=== PATIENT | male | born 1945 | race Caucasian/White ===

== ENCOUNTER → 2017-08-14 08:23 | Outpatient (CLI) | payer MEDICARE, OTHER ==
[~2017-08-14] VITALS: Ht 182.9 cm; Wt 100.0 kg
--- NOTE | ~2017-08-14 | HEMODYNAMI ---
PATIENT:JOHN DAUGHERTY MEDICAL RECORD: [id number] : 43 LOCATION:[facility] ADMISSION DATE: 08/14/17 Generatedon:08/14/201710:57 Patient name: JOHN DAUGHERTY Patient #: [id number] SSN: [id number] : 1945 Date of study: 08/14/2017 Page: Of Hemodynamic Procedure Report Patient Data Patient Demographics Procedure consent was obtained First Name: JOHN Gender: Male Last Name: WILLOW : 1945 Middle Initial: D Age: 72 year(s) Patient #: [id number] Race: SSN: [id number] Additional ID: [id number] Contact details Address: [address] State: [place] City: [place] Zip code: [address] Admission Admission Data Admission Date: 08/14/2017 Admission Time: 8:23 Arrival Date: 08/14/2017 Arrival Time: 10:30 Admit Source: Other Insurance Payor: Medicare Height (in.): 72 BSA: 2.25 (m2) Height (cm.): 182.88 BMI: 30.79 (kg/m2) Weight (lbs.): 227 Weight (kg.): 102.97 Lab Results Lab Result Date: 08/14/2017 Lab Result Time: 0:00 Biochemistry Name Units Result Min Max BUN mg/dl 27 --(----)-* 7 18 Creatinine mg/dl 1.7 --(----)-* 0.6 1.3 CBC Name Units Result Min Max Hemoglobin g/dl 15.7 --(--*-)-- 13.5 17.5 Procedure Procedure Types Cath Procedure Diagnostic Procedure [facility] w/Coronaries PCI Procedure Coronary Atherectomy Atherectomy w/PTCA Coronary Initial Procedure Description Procedure Date Procedure Date: 08/14/2017 Procedure Start Time: 10:27 Procedure End Time: 10:53 Procedure Staff Name Function Jad Velazquez MD Performing Physician Maria D Graff RT Monitor Haleigh Rodriguez RN Nurse April Sifuentes RT Scrub Procedure Data Cath Procedure Fluoroscopy Diagnostic fluoroscopy Total fluoroscopy Time: 5.1 time: 5.1 min min Diagnostic fluoroscopy Total fluoroscopy dose: 622 dose: 622 mGy mGy Contrast Material Contrast Material Type Amount (ml) Isovue 300 63 Entry Location Entry Primary Successful Side Size Upsize Upsize Entry Closure Succes sful Closure Location (Fr) 1 (Fr) 2 (Fr) Remarks Device Remarks Femoral Right 5 Fr 6 Fr Exoseal artery Short Estimated blood loss: 5 ml Diagnostic catheters Device Type Used For End Catheter Placement MULTIPACK Pigtail 5 Fr LV Angiography catheter MULTIPACK JL 4.0 5Fr Left Coronary catheter Angiography MULTIPACK 3DRC 5Fr Right Coronary catheter Angiography Procedure Complications No complications Procedure Medications Medication Administration Route Dosage Oxygen NC 2 l/min Lidocaine 2% added to field 20 Heparin Flush Bag added to field 2 bags (1000units/500ml NS) 0.9% NaCl I.V. 100 ml/hr Versed I.V. 1 mg Fentanyl I.V. 50 mcg Versed I.V. 1 mg Fentanyl I.V. 50 mcg Versed I.V. 1 mg Fentanyl I.V. 50 mcg Heparin Bolus I.V. 4000 units Versed I.V. 1 mg Fentanyl I.V. 50 mcg Hemodynamics Rest BSA: 2.25 (m2) HGB: 15.7 (g/dl) O2 Consumption: Estimated: 256.57 (ml/min) O2 Co nsumption indexed: Estimated:114.03 (ml/min/m) Heart Rate: 67 (bpm) Pressure Samples Time Site Value (mmHg) Purpose Heart Use Rate(bpm) 10:29 LV 84/13,23 Snapshot 68 Snapshots Pre Cath Intra NCS Post Cath Vital Signs Time Heart Resp SPO2 etCO2 NIBP (mmHg) Rhythm Pain Sedation Rate (ipm) (%) (mmHg) Status Level (bpm) 10:13:00 67 15 100 30.7 143/66(109) NSR 0 (11) 10(A) , No pain 10:17:22 65 17 94 31.4 132/57(98) NSR 0 (11) 10(A) , No pain 10:21:39 70 12 95 10.4 107/60(86) NSR 0 (11) 10(A) , No pain 10:25:46 67 16 96 8.9 115/63(83) NSR 0 (11) 9(A) , No pain 10:29:58 66 18 97 0 109/56(77) NSR 0 (11) 9(A) , No pain 10:34:10 72 15 95 23.2 108/57(76) NSR 0 (11) 9(A) , No pain 10:38:20 67 23 96 30.7 113/61(86) NSR 0 (11) 9(A) , No pain 10:42:36 73 15 98 19.4 97/56(83) NSR 0 (11) 9(A) , No pain 10:47:23 68 14 98 8.9 121/62(82) NSR 0 (11) 9(A) , No pain 10:51:35 69 16 99 29.9 116/63(83) NSR 0 (11) 10(A) , No pain Medications Time Medication Route Dose Verified Delivered Reason Notes Effectiveness by by 10:16:14 Oxygen NC 2 Jad Buffie used for l/min Marcus Rodriguez RN procedure 10:16:23 Lidocaine 2% added 20ml Jad Jad for local to vial Marcus Velazquez MD anesthetic field 10:16:31 Heparin Flush added 2 Jad Jad used for Bag to bags Marcus Velazquez MD procedure (1000units/500ml field NS) 10:16:38 0.9% NaCl I.V. 100 Jad Buffie Per physician ml/hr Marcus Rodriguez RN 10:20:00 Versed I.V. 1 mg Jad Buffie for sedation Marcus Rodriguez RN 10:20:07 Fentanyl I.V. 50 Jad Buffie for sedation mcg Marcus Rodriguez RN 10:26:13 Versed I.V. 1 mg Jad Buffie for sedation Marcus Rodriguez RN 10:26:17 Fentanyl I.V. 50 Jad Buffie for sedation mcg Marcus Rodriguez RN 10:34:53 Versed I.V. 1 mg Jad Buffie for sedation Marcus Rodriguez RN 10:34:57 Fentanyl I.V. 50 Jad Buffie for sedation mcg Marcus Rodriguez RN 10:39:17 Heparin Bolus I.V. 4000 Jad Buffie for verifi ed units Marcus Rodriguez RN anticoagulation with dr velazquez 10:45:08 Versed I.V. 1 mg Jad Ricardo for sedation Marcus Rodriguez RN 10:45:11 Fentanyl I.V. 50 Jad Ricardo for sedation mcg Marcus Rodriguez RN Procedure Log Time Note 10:00:00 Informed consent obtained and on chart 10:00:04 Diagnostic Cath Status : Elective 10:00:40 Sheldon Painting RT(R) sent for patient. Start room use. 10:00:41 Time tracking: Regular hours (M-F 7:00 - 5:00) 10:00:49 Plan of Care:Hemodynamics will remain stable., Cardiac rhythm will remain stable., Comfort level will be maintained., Respiratory function will remain adequate., Patient/ family verbilizes understanding of procedure., Procedure tolerated without complication., Recovers from procedure without complications.. 10:02:19 Admit Source: Other 10:03:01 Arrival Date: 08/14/2017 10:30:00 AM 10:03:09 Insurance Payor : Medicare 10:03:54 Patient Height : 72 inches 10:04:22 Patient Weight : 227 lbs 10:06:06 Lab Result : Hemoglobin 15.7 g/dl 10:06:06 Lab Result : Creatinine 1.7 mg/dl 10:06:06 Lab Result : BUN 27 mg/dl 10:06:17 Patient received from Pre/Post Procedure Room to CCL 2 Alert and oriented. Tansferred to table in Supine position. 10:06:18 Warm blankets applied, and marlene hugger turned on for patient comfort. 10:06:18 Correct patient and procedure confirmed by team. 10:06:19 ECG and BP/O2 sat monitors applied to patient. 10:11:50 Vital chart was started 10:11:51 Full Disclosure recording started 10:13:35 Baseline sample Acquired. 10:13:39 Rhythm: sinus rhythm 10:13:48 H&P Date Dictated: 08/14/2017 Within 30 days and on chart., H&P Addendum completed by physician on day of procedure. (MUST COMPLETE FOR ALL OUTPATIENTS). 10:13:49 Pre-procedure instructions explained to patient. 10:13:49 Pre-op teaching completed and patient verbalized understanding. 10:13:51 Family in waiting room. 10:13:52 Patient NPO since Midnight. 10:13:54 Is the patient allergic to Iodine/contrast media? No. 10:13:55 Was the patient premedicated? No 10:14:07 Is patient on blood thinner?Yes 10:14:13 ACC The patient was administered the following blood thiners within the last 24 hours: ACCPlavix 10:14:15 Patient diabetic? No. 10:14:17 Previous problem with sedation/anesthesia? No ? 10:14:19 Snore? No 10:14:20 Sleep apnea? No 10:14:21 Deviated septum? No 10:14:22 Opens mouth fully? Yes 10:14:23 Sticks out tongue? Yes 10:14:24 Airway obstruction? No ? 10:14:27 Dentures? No ? 10:14:30 Pre procedure: right dorsailis pedis pulse 2+ Normal; easily identifiable; not easily obliterated 10:14:33 Pre procedure: left dorsailis pedis pulse 2+ Normal; easily identifiable; not easily obliterated 10:14:36 Patient pain scale 0/10 ?. 10:14:43 IV patent on arrival in left forearm with 0.9% NaCl at [facility]. 10:14:46 Lab results completed and on chart. 10:14:51 Right groin area was prepped with chlora-prep and draped in sterile fashion 10:14:54 Alarms reviewed by R. N. 10:14:54 Sharps counted by scrub and verified by R.N. 10:16:14 Oxygen 2 l/min NC was administered by Haleigh Rodriguez RN; used for procedure; 10:16:23 Lidocaine 2% 20ml vial added to field was administered by Jad Velazquez MD; for local anesthetic; 10:16:31 Heparin Flush Bag (1000units/500ml NS) 2 bags added to field was administered by Jad Velazquez MD; used for procedure; 10:16:38 0.9% NaCl 100 ml/hr I.V. was administered by Haleigh Rodriguez RN; Per physician; 10:19:42 Physician arrived 10:19:42 --------ALL STOP TIME OUT------ 10:19:43 Final Timeout: patient, procedure, and site verified with staff and physician. All members of the team are in agreement. 10:19:47 Right groin site verified by team. 10:19:49 Physical assessment completed. ASA score P 2 - A patient with mild systemic disease as per Jad Velazquez MD. 10:19:52 Sedation plan: IV Moderate Sedation Medication:Versed, Fentanyl 10:20:00 Versed 1 mg I.V. was administered by Haleigh Rodriguez RN; for sedation; 10:20:02 Use device set Femoral Dx 10:20:03 ACIST Syringe (91634) opened to sterile field. 10:20:03 Bag Decanter (2002S) opened to sterile field. 10:20:04 Medline Cath Pack ([id number]) opened to sterile field. 10:20:04 DIAGNOSTIC WIRE .035 260cm J wire (206832) opened to sterile field. 10:20:05 ACIST Hand Control (23674) opened to sterile field. 10:20:05 ACIST Manifold (22855) opened to sterile field. 10:20:06 DIAGNOSTIC Multipack 5Fr catheter set (DT4746) opened to sterile field. 10:20:07 Fentanyl 50 mcg I.V. was administered by Haleigh Rodriguez RN; for sedation; 10:20:07 Tegaderm 4 x 4 (1626W) opened to sterile field. 10:20:11 SHEATH Prelude 5Fr 0.035 (WCL-8R-27-035) opened to sterile field. 10:22:59 Zero performed for pressure channel P1 10:26:13 Versed 1 mg I.V. was administered by Haleigh Rodriguez RN; for sedation; 10:26:17 Fentanyl 50 mcg I.V. was administered by Haleigh Rodriguez RN; for sedation; 10:27:43 Procedure started. 10::49 Local anesthetic to right femoral artery with Lidocaine 1% by Jad Velazquez MD.INITIAL ACCESS ONLY 10:28:05 A 5 Fr sheath was inserted into the Right Femoral artery 10:29:15 A MULTIPACK Pigtail 5 Fr catheter was advanced over the wire and used for LV Angiography. 10:29:25 LV hemodynamics recorded. 10::26 LV gram done using MICHEL 10::32 Injector settings: Ml/sec: 5, Volume: 15, 10:29:37 EF : 50 % 10::45 Catheter removed. 10::49 A MULTIPACK JL 4.0 5Fr catheter was advanced over the wire and used for Left Coronary Angiography. 10:30:24 LCA angiography performed. 10:30:27 Injector settings: Ml/sec: 3, Volume: 6, 10:30:39 Catheter removed. 10:30:48 A MULTIPACK 3DRC 5Fr catheter was advanced over the wire and used for Right Coronary Angiography. 10:31:40 RCA angiography performed. 10:31:44 Injector settings: Ml/sec: 3, Volume: 6, 10:31:58 Catheter removed. 10:32:00 Proceeding to intervention. 10:32:30 SHEATH 6Fr Prelude ([id number]) opened to sterile field. 10:32:31 CHOICE PT Extra Support 182cm wire ([id number]) opened to sterile field. 10:32:32 INFLATOR Merit BasixCompak (NN8758) opened to sterile field. 10:32:33 GUIDE 6FR HS II catheter (TL1QRPX) opened to sterile field. 10:32:46 Sheath upsized to a 6 Fr Short. 10:34:29 LASER ELCA 1.4 Rx atherectomy catheter (034335) opened to sterile field. 10:34:53 Versed 1 mg I.V. was administered by Haleigh Rodriguez RN; for sedation; 10:34:57 Fentanyl 50 mcg I.V. was administered by Haleigh Rodriguez RN; for sedation; 10:35:22 6 Fr hs 2 guide catheter was inserted over the wire 10:39:17 Heparin Bolus 4000 units I.V. was administered by Haleigh Rodriguez RN; for anticoagulation; verified with dr velazquez 10:42:23 choice pt wire advanced. 10:43:01 Wire advanced across lesion. 10:43:06 [employer] lazer catheter advanced 10:44:57 Laser pass to mRCA with Fluence of 40 and Rate of 40. 10:45:08 Versed 1 mg I.V. was administered by Haleigh Rodriguez RN; for sedation; 10:45:11 Fentanyl 50 mcg I.V. was administered by Haleigh Rodriguez RN; for sedation; 10:47:45 Laser catheter removed. 10:48:00 Laser total pulses delivered: 1200 10:48:02 Inflate balloon Inflation number: 1 A EUPHORA 3.5 x 15 Balloon ([id number]) was prepped and advanced across the Mid RCA, then inflated to 15 ROSIE for 0:10 (min:sec). 10:48:13 Inflation number: 2 The EUPHORA 3.5 x 15 Balloon ([id number]) was reinflated across the Mid RCA, to 17 ROSIE for 0:10 (min:sec). 10:48:58 Inflation number: 3 The EUPHORA 3.5 x 15 Balloon ([id number]) was reinflated across the Mid RCA, to 21 ROSIE for 0:10 (min:sec). 10:49:48 Balloon removed over the wire. 10:49:49 Wire removed. 10:49:49 Guide catheter removed. 10:49:56 EXOSEAL 6Fr (EX600) opened to sterile field. 10:50:18 Sheath removed intact; hemostasis achieved with Exoseal to the Right Femoral artery. 10:50:20 Procedure ended.(Physican Out) 10:50:28 Fluoroscopy time 05.10 minutes. 10:50:31 Flurop Dose total: 622 10:50:31 Fluoroscopy dose: 622 mGy 10:51:06 Contrast amount:Isovue 300 63ml. 10:51:16 Sharps counted by scrub and verified by R.N. 10:51:26 Insertion/operative site no bleeding no hematoma. 10:51:29 Post-op/insertion site Right Femoral artery dressed using a 4 x 4 and Tegaderm. 10:51:32 Post right femoral artery:stable 10:51:34 Post Procedure Pulses reassessed and unchanged 10:51:37 Post procedure rhythm: unchanged. 10:51:40 Estimated blood loss: 5 ml 10:51:43 Post procedure instruction explained to patient.Patient verbalizes understanding. 10:51:44 Patient needs reinforcement of post procedure teaching. 10:53:03 Procedure type changed to Cath procedure, Diagnostic procedure, LHC, LHC w/Coronaries, PCI procedure, Coronary Atherectomy, Atherectomy w/PTCA Coronary Initial 10:53:04 Procedure and supply charges have been captured, reviewed, submitted and are correct. 10:53:12 Procedure Complication : No complications 10:53:14 Vital chart was stopped 10:53:18 See physician's report for complete and final results. 10:53:46 Report given to Pre/Post Procedure Room. 10:53:49 Patient transfered to Pre/Post Procedure Room with Stretcher. 10:53:52 Procedure ended. 10:53:52 Full Disclosure recording stopped 10:54:00 ACC-PCI Only Patient was given prescriptions, or instructed by Jad Velazquez MD to start/continue the following medications upon discharge: Plavix 10:54:02 End room use (Document Last) 10:55:56 Laser total treatment time: 30 minutes 0 seconds Intervention Summary Intervention Notes Time ActionType Lesion and Equipment Action# Pressure Duration Attributes Used 10:48:02 Inflate Mid RCA EUPHORA 1 15 00:10 balloon 3.5 x 15 Balloon ([id number]) 10:48:13 Reinflate Mid RCA EUPHORA 2 17 00:10 balloon 3.5 x 15 Balloon ([id number]) 10:48:58 Reinflate Mid RCA EUPHORA 3 21 00:10 balloon 3.5 x 15 Balloon ([id number]) Device Usage Item Name Manufacture Quantity Catalog Number Hospital Part Current M inimal Lot# / Charge Number Stock Stock Serial# Code ACIST Syringe Acist 1 40353 623106 727186 005016 2 0 (99168) [employer] Bag Decanter Microtek 1 2001S 324532 58852 236282 5 (2001S) Medical Inc. Medline Cath Cardinal 1 [id number] 427735 36575 853944 5 Pack Health ([id number]) DIAGNOSTIC WIRE St Rolando 1 535587 618175 418852 782565 3 0 .035 260cm J wire (450955) ACIST Hand Acist 1 72239 601293 031211 272333 5 Control (14386) [employer] Inc ACIST Manifold Acist 1 47549 606144 890343 150432 5 (14187) [employer] Inc DIAGNOSTIC Cardinal 1 AI4972 978036 96261 606478 3 0 Multipack 5Fr Health catheter set (IE7274) Tegaderm 4 x 4 3M 1 1626W 312056 828114 852971 5 (1626W) SHEATH Prelude Merit 1 [id number]-3U-73-035 491616 768106 958665 5 5Fr 0.035 Medical (JRC-0U-71-035) MULTIPACK Cardinal 1 273789 5 Pigtail 5 Fr Health catheter MULTIPACK JL Cardinal 1 280519 5 4.0 5Fr Health catheter MULTIPACK 3DRC Cardinal 1 349665 5 5Fr catheter Health SHEATH 6Fr Merit 1 [id number] 216964 720061 529874 5 Prelude Medical ([id number]) CHOICE PT Extra [place] 1 [id number] 309089 907729 679371 5 Support 182cm Scientific wire ([id number]) INFLATOR Merit Merit 1 ZJ7807 645438 705928 814973 1 5 [facility] Medical (ZQ0735) GUIDE 6FR HS II Medtronic 1 [id number] 407399 83945 993124 1 catheter (LJ5BIUW) LASER ELCA 1.4 Kaycee 1 114-009 455429 057610 234570 5 Rx atherectomy Healthcare catheter (108775) (708564) EUPHORA 3.5 x Medtronic 1 [id number] 200171 169753 685465 5 [id number] 15 Balloon ([id number]) EXOSEAL 6Fr Cardinal 1 EX600 638706 245861 484617 1 0 (EX600) Health Signature Audit Marquand Stage Time Signature Unsigned Intra-Procedure 08/14/2017 Maria D Graff 10:57:09 AM RT(R) Signatures Monitor : Maria D Graff RT Signature : Date : Time : [facility] [address] [place] [address]
--- NOTE | ~2017-08-14 | OP ---
PATIENT NAME: JOHN DAUGHERTY MEDICAL RECORD: [id number] :43 LOCATION:D.CAT ADMISSION DATE: SURGEON: VIPUL SMITH MD DATE OF OPERATION: 08/14/2017 PROCEDURES: 1. PTCA RCA. 2. Laser atherectomy RCA. 3. Left heart catheterization. 4. Selective coronary angiography. 5. Left ventriculogram. INDICATION: Angina and coronary artery disease. PROCEDURE IN DETAIL: After informed consent was obtained and after a detailed description of risks, benefits as well alternative therapies, the patient elected to proceed with angiogram and angioplasty. The right femoral area was prepped and draped in normal sterile fashion. Right femoral artery was cannulated via modified Seldinger technique with placement of 6-Sinhala sheath. All catheters exchanged through this sheath. FINDINGS: The left ventriculogram was performed in standard 30-degree MICHEL view, reveals good cardiac wall motion, ejection fraction is 60%. SELECTIVE CORONARY ANGIOGRAPHY: 1. Left main is with no significant angiographic disease. 2. Left anterior descending has mild irregularities, but no flow-limiting stenosis. 3. The left circumflex has moderate irregularities, but no flow-limiting stenosis. 4. The right coronary artery has previously placed stents with greater than 70% in-stent restenosis. LASER ATHERECTOMY, PTCA OF THE RCA: Laser catheter used was 1.4 at maximum fluence. Multiple passes were made. PTCA was undertaken with a 3.5 balloon. Result was 0% residual. OVERALL IMPRESSION: Successful PTCA and laser atherectomy of the RCA going from greater than 70% initial stenosis to 0% residual. TRANSINT:[id number] Voice Confirmation ID: [id number] DOCUMENT ID: [id number] VIPUL SMITH MD at 1705 CC: [id number] DICTATION DATE: 08/14/17 1056 ARTIFICIAL LEATHER CALENDER OPERATOR: 08/14/17 1312 DEP CLI 08/14/17 [place] [id number] [place] [id number]
[~2017-08-14 08:23] MED LIST: BAYER CHEWABLE81 MG PO; CALAN SR180 MG PO; FLAXSEED OIL1000 MG PO; FLOMAX0.4 MG PO; HYDROCHLOROTH12.5 M1 PO; LOTENSIN HCT 21 EAC1 PO; NITROQUICK0.4 MG SL; PLAVIX75 MG PO; PROSCAR5 MG PO; SUPER B COMPLE150 MG PO; VITAMIN B-121000 MCG PO; ZANTAC150 MG PO
[2017-08-14 08:50] VITALS: BP 132/53; Ht 182.9 cm; Wt 100.0 kg
[2017-08-14 08:57] LABS: BASOPHILS 0.6 % (0-2); EOSINOPHILS 0.7 % (0-7); HEMATOCRIT 44.5 % (42.0-54.0); HEMOGLOBIN 15.7 g/dL (13.5-17.5); IMMATURE GRANULOCYTES 0.4 % (0-5); LYMPHOCYTES 14.1 % (15-50); MCH 31.8 pg (26.0-34.0); MCHC 35.3 g/dL (31.0-37.0); MCV 90.3 fL (80.0-100.0); MEAN PLATELET VOLUME 10.7 fL (7.4-10.4); MONOCYTES 8.7 % (2-11); NEUTROPHILS 75.5 % (40-80); PLATELET COUNT 188 10x3/uL (130-400); RBC 4.93 10x6/uL (4.20-6.10); RDW 13.5 % (11.5-14.5); WBC 8.5 10x3/uL (4.8-10.8)
[2017-08-14 09:04] LABS: CALCIUM 9.3 mg/dL (8.5-10.1); CARBON DIOXIDE 24.7 mmol/L (21.0-32.0); CREATININE - SERUM 1.7 mg/dL (0.6-1.3); POTASSIUM - SERUM 3.7 mmol/L (3.5-5.1)
== END | disposition home or self-care (01) ==
LOC: D.CATH 08:23
PROVIDERS: Internal Medicine Interventional Cardiology
DX: I25.119 Atherosclerotic heart disease of native coronary artery with unspecified angina pectoris (principal); Z01.812 Encounter for preprocedural laboratory examination

== ENCOUNTER → 2017-10-11 09:06 | Outpatient (CLI) | payer MEDICARE, OTHER ==
[2017-08-14 08:50] VITALS: BMI 29.9
== END | disposition home or self-care (01) ==
LOC: D.US 09:06
DX: R09.89 Other specified symptoms and signs involving the circulatory and respiratory systems (principal); N20.0 Calculus of kidney

== ENCOUNTER → 2018-12-18 13:08 | Outpatient (CLI) | payer MEDICARE, OTHER ==
[2017-08-14 08:50] VITALS: BMI 29.9
== END | disposition home or self-care (01) ==
LOC: D.LABREF 13:08
PROVIDERS: ATTEND Surgery
DX: L72.3 Sebaceous cyst (principal)

== ENCOUNTER → 2019-02-10 08:25 | Outpatient (CLI) | payer MEDICARE, OTHER ==
[2017-08-14 08:50] VITALS: BMI 29.9
--- NOTE | ~2019-02-10 | ST ---
PATIENT:JOHN DAUGHERTY MEDICAL RECORD: [id number] SEX: M LOCATION:[facility] ORDER #: ADMISSION DATE: 02/10/19 AGE OF PATIENT: 73 REFERRING PHYSICIAN: INTERPRETING PHYSICIAN: VIPUL SMITH MD DATE OF SERVICE: 02/10/2019 PROCEDURE: Nuclear stress test. INDICATIONS: Angina, coronary artery disease, shortness of breath. He was exercised on standard Lexiscan protocol with 33 mCi of sestamibi injected at peak stress, 11 mCi used previously for rest images. FINDINGS: Gated SPECT reveals a decreased ejection fraction at 36% with decreased thickening and brightening throughout the inferior segments. SPECT imaging: Cardiolite was used as myocardial perfusion agent. There is a mixed perfusion defect inferiorly and apically. This is partially fixed, partially reversible, includes the basal, mid, apical, inferior segments as well as the apex itself. There is reversibility throughout the defect. The size of the defect is moderate. OVERALL IMPRESSION: This is an intermediate high risk nuclear stress test with a moderate defect inferiorly, partially fixed, partially reversible, ejection fraction decreased at 36% compatible with a previous ischemic cardiomyopathy that is new for this patient suggestive of recurrent hemodynamically significant coronary artery disease. TRANSINT:[id number] Voice Confirmation ID: [id number] DOCUMENT ID: [id number] VIPUL SMITH MD CC: ALYSIA WHEELER MD [id number] DICTATION DATE: 02/11/19 1158 BULK FLUIDS HANDLER: 02/12/19 0035 DEP CLI 02/10/19 [place] [address] [place] [address]
== END | disposition home or self-care (01) ==
LOC: D.HCCARDIO 08:25
PROVIDERS: ATTEND Internal Medicine Interventional Cardiology
DX: I25.119 Atherosclerotic heart disease of native coronary artery with unspecified angina pectoris (principal)

== ENCOUNTER 2019-02-14 08:21 | Outpatient (CLI) | payer MEDICARE, OTHER ==
[~2019-02-14] VITALS: Ht 182.9 cm; Wt 98.6 kg
--- NOTE | ~2019-02-14 | OP ---
PATIENT NAME: JOHN DAUGHERTY MEDICAL RECORD: [id number] :43 LOCATION:D.CAT ADMISSION DATE: SURGEON: VIPUL SMITH MD DATE OF OPERATION: 02/14/2019 DATE OF SERVICE: 02/14/2019 PROCEDURES: 1. PTCA stent LAD. 2. IFR LAD. 3. IFR RCA. 4. Left heart catheterization. 5. Selective coronary angiography. 6. Left ventriculogram. INDICATION: Angina and coronary artery disease. PROCEDURE IN DETAIL: After informed consent was obtained and after a detailed description of the risks, benefits as well as alternative therapies, the patient elected to proceed with angiogram and angioplasty. The right femoral area was prepped and draped in normal sterile fashion. Right femoral artery was cannulated via modified Seldinger technique with placement of 6-Latvian sheath. All catheters exchanged through this sheath. FINDINGS: Left ventriculogram was performed in standard 30-degree MICHEL view, reveals good cardiac wall motion throughout all segments. Overall ejection fraction 50%. SELECTIVE CORONARY ANGIOGRAPHY: 1. Left main is with no significant angiographic disease. 2. Left anterior descending has 80% stenosis in the mid vessel. An IFR was abnormal at 0.59. 3. Left circumflex has mild irregularities, but no flow-limiting stenosis. 4. The right coronary has previously placed stents. There is a questionable area of stenosis that is in-stent restenosis; however, IFR is normal at 0.96. PTCA STENT OF THE LAD: The stent used was a 2.5 x 15 mm Adan. Result was 0% residual stenosis. OVERALL IMPRESSION: Successful percutaneous transluminal coronary angioplasty stent of the left anterior descending going from 80% initial stenosis to 0% residual. TRANSINT:[id number] Voice Confirmation ID: [id number] DOCUMENT ID: [id number] VIPUL SMITH MD CC: [id number] DICTATION DATE: 02/14/19 1221 CONTRACTOR BUYER: 02/14/19 1456 [facility] [address] [place] [address]
--- NOTE | ~2019-02-14 | HEMODYNAMI ---
PATIENT:JOHN DAUGHERTY MEDICAL RECORD: [id number] : 43 LOCATION:D.CAT ADMISSION DATE: 02/14/19 Generatedon:02/14/201912:23 Patient name: JOHN DAUGHERTY Patient #: [id number] SSN: [id number] : 1945 Date of study: 02/14/2019 Page: Of Hemodynamic Procedure Report Patient Data Patient Demographics Procedure consent was obtained First Name: JOHN Gender: Male Last Name: WILLOW : 1945 Middle Initial: D Age: 73 year(s) Patient #: [id number] Race: SSN: [id number] Additional ID: [id number] Contact details Address: [facility] [address] State: [place] City: [place] Zip code: [address] Past Medical History Allergies Allergen Reaction Date Comments Reported Other allergy 02/14/2019 Hydrocodone, Oxycodone, Vicodin Admission Admission Data Admission Date: 02/14/2019 Admission Time: 8:21 Arrival Date: 02/07/2019 Arrival Time: 0:00 Admit Source: Other Insurance Payor: Medicare, Private health insurance [facility] #: [id number] Height (in.): 71.65 BSA: 2.19 (m2) Height (cm.): 182 BMI: 29.59 (kg/m2) Weight (lbs.): 216.05 Weight (kg.): 98 Lab Results Lab Result Date: 02/14/2019 Lab Result Time: 0:00 Biochemistry Name Units Result Min Max BUN mg/dl 15 --(--*-)-- 7 18 CBC Name Units Result Min Max Hemoglobin g/dl 15.2 --(-*--)-- 13.5 17.5 Procedure Procedure Types Cath Procedure Diagnostic Procedure LHC LH w/Coronaries FFR/IVUS FFR Initial FFR Additional Sedation Charges Moderate Sedation up to 30 minutes PCI Procedure Coronary Stent Coronary Stent Initial Hemochron ACT Test Procedure Description Procedure Date Procedure Date: 02/14/2019 Procedure Start Time: 11:55 Procedure End Time: 12:20 Procedure Staff Name Function Jad Velazquez MD Performing Physician Arielle Arvizu RT Monitor Haleigh Rodriguez RN Nurse Veronica Chaudhry RT Scrub Procedure Data Cath Procedure Fluoroscopy Diagnostic fluoroscopy Total fluoroscopy Time: 5.3 time: 5.3 min min Diagnostic fluoroscopy Total fluoroscopy dose: dose: 1050 mGy 1050 mGy Contrast Material Contrast Material Type Amount (ml) Isovue 300 105 Entry Location Entry Primary Successful Side Size Upsize Upsize Entry Closure Succes sful Closure Location (Fr) 1 (Fr) 2 (Fr) Remarks Device Remarks Femoral Right 5 Fr 6 Fr Exoseal artery Short Estimated blood loss: 10 ml Diagnostic catheters Device Type Used For End Catheter Placement MULTIPACK Pigtail 5 Fr Procedure catheter MULTIPACK JL 4.0 5Fr Procedure catheter MULTIPACK 3DRC 5Fr Procedure catheter Procedure Complications No complications Procedure Medications Medication Administration Route Dosage Oxygen etCO2 Nasal cannula 2 l/min Lidocaine 2% added to field 20 Heparin Flush Bag added to field 2 bags (1000units/500ml NS) 0.9% NaCl I.V. 100 ml/hr Versed I.V. 2 mg Fentanyl I.V. 50 mcg Versed I.V. 2 mg Heparin Bolus I.V. 4000 units Integrilin (Bolus I.V. 9 ml 2mg/ml) Plavix P.O. 600 mg Hemodynamics Rest BSA: 2.19 (m2) HGB: 15.2 (g/dl) O2 Consumption: Estimated: 297.84 (ml/min) O2 Co nsumption indexed: Estimated:136 (ml/min/m) Pre Cath Intra NCS Post Cath Vital Signs Time Heart Resp SPO2 etCO2 NIBP (mmHg) Rhythm Pain Sedation Rate (ipm) (%) (mmHg) Status Level (bpm) 11:44:47 72 13 98 0 145/65(113) NSR 0 (11) 10(A) , No pain 11:49:08 69 14 96 38.9 134/60(101) NSR 0 (11) 10(A) , No pain 11:53:26 69 13 98 33.6 128/59(92) NSR 0 (11) 10(A) , No pain 11:57:44 71 16 98 14.2 131/54(95) NSR 0 (11) 10(A) , No pain 12:01:58 77 14 94 0 117/64(89) NSR 0 (11) 9(A) , No pain 12:06:10 72 11 96 23.9 122/59(101) NSR 0 (11) 9(A) , No pain 12:10:24 74 14 98 21.6 117/57(87) NSR 0 (11) 9(A) , No pain 12:14:33 76 13 98 15.6 123/64(93) NSR 0 (11) 9(A) , No pain 12:18:43 78 15 98 32.1 125/68(93) NSR 0 (11) 10(A) , No pain Medications Time Medication Route Dose Verified Delivered Reason Notes Effectiveness by by 11:43:48 Oxygen etCO2 2 Jad Ricardo used for Nasal l/min Marcus Rodriguez RN procedure cannula 11:43:54 Lidocaine 2% added 20ml Jad Street for local to vial Marcus Velazquez MD anesthetic field 11:44:00 Heparin Flush added 2 Jadrobb Barnhartrey used for Bag to bags Marcus Velazquez MD procedure (1000units/500ml field NS) 11:47:41 0.9% NaCl I.V. 100 Jad Ricardo Per ml/hr Marcus Rodriguez RN physician 11:55:18 Versed I.V. 2 mg Jad Ricardo for sedation Marcus Rodriguez RN 11:55:23 Fentanyl I.V. 50 Jad Ricardo for sedation mcg Marcus Rodriguez RN 12:02:31 Versed I.V. 2 mg Jad Ricardo for sedation Marcus Rodriguez RN 12:06:20 Heparin Bolus I.V. 4000 Jad Ricardo for sedation verified units Marcus Rodriguez RN with dr velazquez 12:08:38 Integrilin I.V. 9 ml Jad Ricardo for wasted 1 (Bolus 2mg/ml) Marcus Rodriguez RN antiplatelet ml of therapy vial 12:18:15 Plavix P.O. 600 Jad Ricardo for mg Marcus Rodriguez RN antiplatelet therapy Procedure Log Time Note 11:34:21 Admit Source: Other 11:34:24 Arrival Date: 02/07/2019 12:00:00 AM 11:34:52 Insurance Payor : Private health insurance, Medicare 11:35:11 Patient Height : 71.65 inches 11:35:14 Patient Weight : 216.05 lbs 11:35:51 Lab Result : BUN 15 mg/dl 11:35:51 Lab Result : Hemoglobin 15.2 g/dl 11:36:11 Diagnostic Cath Status : Elective 11:36:50 ACC Patient presents with Stable Angina CCS Anginal Class 2--Slight limitation of ordinary activity. 11:36:54 Procedure Status Elective Heart Cath (OP). 11:36:57 Veronica Chaudhry RT(R) sent for patient. Start room use. 11:37:15 Time tracking: Regular hours (M-F 7:00 - 5:00) 11:37:19 Plan of Care:Hemodynamics will remain stable., Cardiac rhythm will remain stable., Comfort level will be maintained., Respiratory function will remain adequate., Patient/ family verbilizes understanding of procedure., Procedure tolerated without complication., Recovers from procedure without complications.. 11:37:24 Patient received from Pre/Post Procedure Room to CCL 2 Alert and oriented. Tansferred to table in Supine position. 11:37:27 Signed procedure consent form obtained from patient. 11:37:28 Warm blankets applied, and marlene hugger turned on for patient comfort. 11:37:28 Correct patient and procedure confirmed by team. 11:37:29 ECG and BP/O2 sat monitors applied to patient. 11:37:47 H&P Date Dictated: 02/06/2019 Within 30 days and on chart., H&P Addendum completed by physician on day of procedure. (MUST COMPLETE FOR ALL OUTPATIENTS). 11:37:49 Pre-op teaching completed and patient verbalized understanding. 11:37:50 Family in waiting room. 11:37:52 Patient NPO since Midnight. 11:38:21 Patient allergic to Other allergyHydrocodone, Oxycodone, Vicodin 11:38:24 Is the patient allergic to Iodine/contrast media? No. 11:38:25 Was the patient premedicated? Yes 11:38:27 Is patient on blood thinner?No 11:38:30 Patient diabetic? No. 11:38:34 Snore? No 11:38:35 Sleep apnea? No 11:38:39 Dentures? No ? 11:38:43 Patient pain scale 0/10 ?. 11:38:48 IV patent on arrival in left forearm with 0.9% NaCl at KVO. 11:38:52 Lab results completed and on chart. 11:39:18 Stress Test: yes; abnormal inferior 11:39:24 Right Radial & Right Groin area was prepped with chlora-prep and draped in sterile fashion 11:39:25 Alarms reviewed by R. N. 11:39:25 Sharps counted by scrub and verified by R.N. 11:39:27 Physician paged 11:43:38 Vital chart was started 11:43:48 Oxygen 2 l/min etCO2 Nasal cannula was administered by Haleigh Rodriguez RN; used for procedure; Verbal order read back and verified. 11:43:54 Lidocaine 2% 20ml vial added to field was administered by Jad Velazquez MD; for local anesthetic; Verbal order read back and verified. 11:44:00 Heparin Flush Bag (1000units/500ml NS) 2 bags added to field was administered by Jad Velazquez MD; used for procedure; Verbal order read back and verified. 11:44:30 3a) 45-59 Moderately reduced kidney function. 11:47:41 0.9% NaCl 100 ml/hr I.V. was administered by Haleigh Rodriguez RN; Per physician; Verbal order read back and verified. 11:54:43 Physician arrived 11:54:43 --------ALL STOP TIME OUT------ 11:54:57 Final Timeout: patient, procedure, and site verified with staff and physician. All members of the team are in agreement. 11:54:59 Right groin site verified by team. 11:55:02 Fire Safety Assessment: A--An alcohol-based skin anteseptic being used preoperatively., C--Open oxygen or nitrous oxide is being used., D--An ESU, laser, or fiber-optic light is being used. 11:55:06 Physical assessment completed. ASA score P 3 - A patient with severe systemic disease as per Jad Velazquez MD. 11:55:11 Maximum allowable contrast dose (3.7 X eGFR X 0.75)158 ml. 11:55:18 Versed 2 mg I.V. was administered by Haleigh Rodriguez RN; for sedation; Verbal order read back and verified. 11:55:18 Sedation plan: IV Moderate Sedation Medication:Versed, Fentanyl 11:55:23 Fentanyl 50 mcg I.V. was administered by Haleigh Rodriguez RN; for sedation; Verbal order read back and verified. 11:55:29 Procedure started. 11:55:30 Full Disclosure recording started 11:55:34 Local anesthetic to right femoral artery with Lidocaine 2% by Jad Velazquez MD.INITIAL ACCESS ONLY 11:55:43 A 5 Fr sheath was inserted into the Right Femoral artery 11:57:20 Use device set Femoral Dx 11:57:21 ACIST Syringe (14710) opened to sterile field. 11:57:22 Bag Decanter (2002S) opened to sterile field. 11:57:22 Medline Cath Pack ([id number]) opened to sterile field. 11:57:24 ACIST Hand Control (85178) opened to sterile field. 11:57:24 ACIST Manifold (69051) opened to sterile field. 11:57:25 DIAGNOSTIC Multipack 5Fr catheter set (FZ7110) opened to sterile field. 11:57:25 Tegaderm 4 x 4 (1626W) opened to sterile field. 11:57:27 SHEATH 5FR [place] (ETW087) opened to sterile field. 11:57:27 EMERALD Guide Wire (659-259) opened to sterile field. 11:57:33 A MULTIPACK Pigtail 5 Fr catheter was advanced over the wire and used for Procedure. 11:57:45 EF : 50 % 11:57:50 Catheter removed. 11:58:02 A MULTIPACK JL 4.0 5Fr catheter was advanced over the wire and used for Procedure. 11:59:13 LCA angiography performed. 11:59:14 Catheter removed. 11:59:20 A MULTIPACK 3DRC 5Fr catheter was advanced over the wire and used for Procedure. 11:59:24 RCA angiography performed. 11:59:25 Catheter removed. 11:59:37 [place] Verrata Plus pressure wire (97380W) opened to sterile field. 12:01:24 Proceeding to intervention. 12:01:25 Sheath upsized to a 6 Fr Short. 12:01:42 6 Fr xblad3.5 guide catheter was inserted over the wire 12:01:48 IFR wire advanced. 12:02:31 Versed 2 mg I.V. was administered by Haleigh Rodriguez RN; for sedation; Verbal order read back and verified. 12:03:06 [place] Verrata Plus pressure wire (14437R) opened to sterile field. 12:03:06 INFLATOR Merit BasixCompak (MO7291) opened to sterile field. 12:03:07 SHEATH 6FR [place] (TOE605) opened to sterile field. 12:05:49 Wire advanced across lesion. 12:06:10 dLAD lesion measured at .59 with IFR 12:06:20 Heparin Bolus 4000 units I.V. was administered by Haleigh Rodriguez RN; for sedation; verified with dr velazquez Verbal order read back and verified. 12:08:38 Integrilin (Bolus 2mg/ml) 9 ml I.V. was administered by Haleigh Rodriguez RN; for antiplatelet therapy; wasted 1 ml of vial Verbal order read back and verified. 12:10:40 Place stent Inflation Number: 1 A JUNIE OTW 2.5 x 15 stent ([id number]) was prepped and advanced across the Dist LAD 80. The stent was deployed at 15 ROSIE for 0:16 (min:sec) . 12:10:56 Stent catheter was removed intact over wire. 12:11:04 Guide catheter removed. 12:11:07 GUIDE 6FR 3DRC catheter ([id number]) opened to sterile field. 12:11:16 6 Fr 3drc guide catheter was inserted over the wire 12:13:38 [place] Verrata Plus pressure wire (79314I) opened to sterile field. 12:14:04 Wire advanced across lesion. 12:15:28 mRCA lesion measured at .94 with IFR 12:16:39 EXOSEAL 6Fr (EX600) opened to sterile field. 12:16:50 ACT drawn and resulted at 254 seconds. (normal therapeutic range 180-240 seconds). 12:17:15 Wire removed. 12:17:16 Guide catheter removed. 12:17:23 Sheath removed intact; hemostasis achieved with Exoseal to the Right Femoral artery. 12:17:27 Procedure ended.(Physican Out) 12:17:42 Fluoroscopy time 05.30 minutes. 12:17:46 Fluoroscopy dose: 1050 mGy 12:17:46 Flurop Dose total: 1050 12:17:52 Dose Area Product 27812 mGy/cm. 12:18:09 Contrast amount:Isovue 300 105ml. 12:18:11 Maximum allowable dose exceeded? No. 12:18:14 Insertion/operative site no bleeding no hematoma. 12:18:15 Plavix 600 mg P.O. was administered by Haleigh Rodriguez RN; for antiplatelet therapy; Verbal order read back and verified. 12:18:18 Post right femoral artery:stable 12:18:47 Post-procedure physical assessment completed. ASA score P 3 - A patient with severe systemic disease as per Jad Velazquez MD. 12:18:55 Post procedure rhythm: unchanged. 12:18:58 Estimated blood loss: 10 ml 12:18:59 Post procedure instruction explained to patient.Patient verbalizes understanding. 12:19:27 Procedure type changed to Cath procedure, Diagnostic procedure, LHC, C w/Coronaries, FFR/IVUS, FFR Initial, FFR Additional, Sedation Charges, Moderate Sedation up to 30 minutes, PCI procedure, Coronary Stent, Coronary Stent Initial, Hemochron ACT Test 12:19:41 Procedure and supply charges have been captured, reviewed, submitted and are correct. 12:20:09 Procedure Complication : No complications 12:20:11 Vital chart was stopped 12:20:14 [facility] Findings: MVD- PCI performed (see procedure note) 12:20:16 Operative report dictated upon procedure completion. 12:20:16 See physician's report for complete and final results. 12:20:18 Report given to Pre/Post Procedure Room. 12:20:22 Patient transfered to Pre/Post Procedure Room with Stretcher. 12:20:24 Procedure ended. 12:20:24 Full Disclosure recording stopped 12:20:33 ACC-PCI Only Patient was given prescriptions, or instructed by Jad Velazquez MD to start/continue the following medications upon discharge: Plavix 12:20:35 End room use (Document Last) 12:22:28 End room use (Document Last) 12:23:03 End room use (Document Last) Intervention Summary Intervention Notes Time ActionType Lesion and Equipment Action# Pressure Duration Attributes Used 12:10:40 Place stent Dist LAD JUNIE OTW 2.5 1 15 00:16 x 15 stent ([id number]) Device Usage Item Name Manufacture Quantity Catalog Hospital Part [facility] Lot# / Number Charge Number Stock Stock Serial# Code ACIST Syringe Acist 1 93085 573664 053636 138717 20 (01374) Medical Systems Inc Bag Decanter Microtek 1 2001S 277104 64846 347994 5 (2001S) Medical Inc. Medline Cath Medline 1 [id number] 450410 07589 103663 5 Pack ([id number]) ACIST Hand Acist 1 58648 937267 290722 443634 5 Control Medical (32093) Systems Inc ACIST Acist 1 29823 728958 094491 076355 5 Manifold Medical (78370) Systems Inc DIAGNOSTIC Cardinal 1 [id number] 471612 41196 376970 30 Multipack 5Fr Health catheter set (DH4863) Tegaderm 4 x 3M 1 1626W 802070 870617 473170 5 4 (1626W) SHEATH 5FR Terumo 1 [id number] 506447 135508 169184 5 [place] (LZB451) EMERALD Guide Cardinal 1 502-455 708560 819910 547513 5 Wire Health (502-455) MULTIPACK Cardinal 1 237922 5 Pigtail 5 Fr Health catheter MULTIPACK JL Cardinal 1 673161 5 4.0 5Fr Health catheter MULTIPACK Cardinal 1 468987 5 3DRC 5Fr Health catheter [place] 3 [id number] 024353 [id number] 340681 5 Verrata Plus pressure wire (98832K) INFLATOR Merit 1 AE4251 850201 885267 802431 15 myfab5 BasixCompak (YE0653) SHEATH 6FR Terumo 1 OEL270 748688 492746 765716 40 [place] (XHC388) JUNIE OTW 2.5 Medtronic 1 [id number] 350992 90768 490571 5 [id number] x 15 stent ([id number]) GUIDE 6FR Medtronic 1 [id number] 394157 358935 170020 1 3DRC catheter ([id number]) EXOSEAL 6Fr Cardinal 1 EX600 964941 516381 966107 10 (EX600) Health Signature Audit [place] Stage Time Signature Unsigned Intra-Procedure 02/14/2019 Arielle Arvizu 12:22:28 PM RT(R) Intra-Procedure 02/14/2019 Haleigh Rodriguez RN 12:23:03 PM Intra-Procedure 02/14/2019 Jad Velazquez 12:23:25 PM MD Signatures Performing Physician : Signature : Jad Velazquez MD Date : Time : Monitor : Arielle Nolberto Signature : RT Date : Time : Nurse : Michaelleie Rodriguez RN Signature : Date : Time : [address] [place] [address] [place] [address]
[2019-02-14] MEDS ORDERED: MULTI-DAY VITAM1 TAB PO (09:02)
[2019-02-14] MEDS ORDERED: COLCRYS0.6 MG PO (09:06)
[2019-02-14] MEDS ORDERED: ZYLOPRIM300 MG PO (09:06)
[2019-02-14 09:22] VITALS: BP 152/57; Ht 182.9 cm; Wt 98.6 kg
[2019-02-14 09:30] LABS: BASOPHILS 0.3 % (0-2); EOSINOPHILS 1.1 % (0-7); HEMOGLOBIN 15.2 g/dL (13.5-17.5); IMMATURE GRANULOCYTES 0.3 % (0-5); LYMPHOCYTES 16.8 % (15-50); MCH 32.3 pg (26.0-34.0); MCHC 34.5 g/dL (31.0-37.0); MCV 93.4 fL (80.0-100.0); MEAN PLATELET VOLUME 10.6 fL (7.4-10.4); MONOCYTES 7.6 % (2-11); NEUTROPHILS 73.9 % (40-80); PLATELET COUNT 187 10x3/uL (130-400); RBC 4.71 10x6/uL (4.20-6.10); WBC 9.4 10x3/uL (4.8-10.8)
[2019-02-14 09:48] LABS: ANION GAP 11.8 mmol/L (8-16); CALCIUM 9.5 mg/dL (8.5-10.1); CARBON DIOXIDE 28.1 mmol/L (21.0-32.0); CHOL - HDL RATIO 2.4 ratio (2.3-4.9); CREATININE - SERUM 1.3 mg/dL (0.6-1.3); POTASSIUM - SERUM 3.9 mmol/L (3.5-5.1)
--- NOTE | 2019-02-14 12:33 | NUR ---
PT ARRIVED BY STRETCHER. PLACED ON MONITORS. ASSESSMENT COMPLETED. FAMILY AT BEDSIDE. CALL LIGHT WITHIN REACH.
--- NOTE | 2019-02-14 12:48 | NUR ---
RIGHT GROIN DRESSING C/D/I. NO S/S OF HEMATOMA NOTED. CALL LIGHT WITHIN REACH. FAMILY AT BEDSIDE.
[2019-02-14] MEDS ORDERED: PLAVIX75 MG PO (12:52)
--- NOTE | 2019-02-14 13:15 | NUR ---
RIGHT GROIN DRESSING C/D/I .NO S/S OF HEMATOMA NOTED. CALL LIGHT WITHIN REACH. VSS. FAMILY AT BEDSIDE. NO NEEDS AT THIS TIME.
--- NOTE | 2019-02-14 13:45 | NUR ---
RIGHT GROIN DRESSING C/D/I. NO S/S OF HEMATOMA NOTED. CALL LIGHT WITHIN REACH. VSS AT THIS TIME. FAMILY AT BEDSIDE. PT STILL IN SUPINE POSITION. NO NEEDS AT THIS TIME.
--- NOTE | 2019-02-14 14:15 | NUR ---
RIGHT GROIN DRESSING C/D/I. NO S/S OF HEMATOMA NOTED. CALL LIGHT WITHIN REACH. FAMILY AT BEDSIDE. VSS.
--- NOTE | 2019-02-14 14:45 | NUR ---
RIGHT GROIN DRESSING C/D/I. NO S/S OF HEMATOMA NOTED. CALL LIGHT WITHIN REACH. FAMILY AT BEDSIDE. NO NEEDS AT THIS TIME.
--- NOTE | 2019-02-14 15:15 | NUR ---
HEAD OF BED INC TO 30 DEGREES. TOLERATED WELL. VSS. RIGHT GROIN DRESSING C/D/I. NO S/S OF HEMATOMA NOTED. SET UP WITH SANDWICH TRAY AND DRINK. DENIES NAUSEA/PAIN AT THIS TIME.
--- NOTE | 2019-02-14 16:00 | NUR ---
PIV D/C'D WITH CATH TIP INTACT. TOLERATED WELL. RIGHT GROIN DRESSING C/D/I. NO S/S OF HEMATOMA NOTED. PT INSTRUCTED TO GET UP AND DRESSED. AMBULATED TO RESTROOM. VOIDED WITHOUT DIFFICULTY. STEADY GAIT NOTED.
--- NOTE | 2019-02-14 16:10 | NUR ---
DISCUSSED DISCHARGE INSTRUCTIONS WITH PT AND PT'S FAMILY. THEY VOICED UNDERSTANDING. RIGHT GROIN DRESSING C/D/I. NO S/S OF HEMATOMA NOTED.
--- NOTE | 2019-02-14 16:15 | NUR ---
PT TAKEN OUT TO VEHICLE BY WHEELCHAIR. NO S/S OF DISTRESS NOTED. ALL BELONGINGS AND PAPERWORK IN HAND.
== END 2019-02-14 16:15 | disposition home or self-care (01) ==
LOC: D.CATH 08:21
PROVIDERS: ATTEND Internal Medicine Interventional Cardiology
DX: I25.119 Atherosclerotic heart disease of native coronary artery with unspecified angina pectoris (principal); E78.5 Hyperlipidemia, unspecified; I10 Essential (primary) hypertension; R06.09 Other forms of dyspnea; R53.81 Other malaise
CPT/HCPCS: 93458; 93571; 93572; C9600